=== PATIENT | male | born 1990 | race Caucasian/White ===

== ENCOUNTER 2016-07-16 20:10 | Emergency (ER) | payer OTHER ==
[~2016-07-16] VITALS: Ht 170.2 cm; Wt 52.6 kg
[~2016-07-16 20:10] MED LIST: CIPROFLOXACIN500 M1 PO; FLEXERIL10 MG PO; METRONIDAZOLE500 MG PO; NAPROSYN500 MG PO; NO HOME MEDS; NOHOMEMEDS; PREDNISONE20 MG PO; ULTRAM50 MG PO
[2016-07-16 20:33] VITALS: BP 120/95
[2016-07-16 21:02] LABS: HEMATOCRIT 45.5 % (38.0-50.0); MCH 23.4 PG (29.0-34.0); MCHC 30.8 G/DL (30.0-36.0); PLATELET COUNT 584 K/uL (156-360); RBC DIS.WIDTH-SD 43.6 % (39-53); RED BLOOD COUNT 5.99 M/uL (4.00-5.50); WHITE BLOOD COUNT 13.4 K/uL (4.1-10.2)
[2016-07-16 21:19] LABS: CHLORIDE 98 mEq/L (99-109); POTASSIUM 3.9 mEq/L (3.7-5.4); SODIUM 136 mEq/L (136-147)
[2016-07-16 21:21] LABS: GLUCOSE 121 mg/dL (70-99)
[2016-07-16 21:22] LABS: ANION GAP 14 MEQ/L (2-14)
[2016-07-16 21:23] LABS: TOTAL BILIRUBIN 0.3 mg/dL (0.0-1.0)
[2016-07-16 21:25] LABS: ALKALINE PHOSPHATASE 123 IU/L (3-129); GFR ESTIMATE (CALCULATED) > 59 mL/min/
[2016-07-16 21:26] LABS: UREA NITROGEN (BUN) 10 mg/dL (9-23)
== END 2016-07-16 23:54 | disposition left against medical advice (07) ==
LOC: EME 20:10
DX: R11.0 Nausea (principal); Z53.21 Procedure and treatment not carried out due to patient leaving prior to being seen by health care provider
CPT/HCPCS: 80053; 81003; 85027

== ENCOUNTER 2016-07-26 18:48 | Inpatient (IN) | payer OTHER ==
[~2016-07-26] VITALS: Ht 170.2 cm; Wt 51.0 kg
[2016-07-26 19:43] LABS: CHLORIDE 102 mEq/L (99-109); POTASSIUM 3.9 mEq/L (3.7-5.4); SODIUM 137 mEq/L (136-147)
[2016-07-26 19:45] LABS: MCH 23.4 PG (29.0-34.0); MCHC 31.2 G/DL (30.0-36.0); MCV 74.9 FL (86-99); MEAN PLAT.VOLUME 9.4 uM^3 (9.0-12.4); PLATELET COUNT 603 K/uL (156-360); RBC DIS.WIDTH-CV 16.9 % (11.8-14.6); RBC DIS.WIDTH-SD 44.4 % (39-53); RED BLOOD COUNT 5.61 M/uL (4.00-5.50); WHITE BLOOD COUNT 12.6 K/uL (4.1-10.2)
[2016-07-26 19:46] LABS: GLUCOSE 94 mg/dL (70-99)
[2016-07-26 19:47] LABS: ANION GAP 11 MEQ/L (2-14); TOTAL BILIRUBIN 0.2 mg/dL (0.0-1.0)
[2016-07-26 19:49] LABS: ALKALINE PHOSPHATASE 120 IU/L (3-129); GFR ESTIMATE (CALCULATED) > 59 mL/min/
[2016-07-26 19:50] LABS: UREA NITROGEN (BUN) 11 mg/dL (9-23)
[2016-07-26 19:51] LABS: ADD MIUA? YES; BILIRUBIN NEGATIVE; BLOOD NEGATIVE; COLOR YELLOW ((YELLOW)); GLUCOSE (STRIP) NEGATIVE; KETONES 5; LEUKOCYTES NEGATIVE; NITRITE NEGATIVE; PROTEIN (STRIP) NEGATIVE; SPECIFIC GRAVITY 1.023 (1.000-1.030); UROBILINOGEN 0.2 MG/DL (0.2-1.0)
[2016-07-26 19:55] LABS: BACTERIA NONE SEEN /HPF; CALCIUM OXALATE CRYSTALS 2+ /HPF; EPITHELIAL CELLS NONE SEEN /HPF; GRANULAR CASTS 0-5 /LPF; HYALINE CASTS 0-5 /LPF; MUCUS TRACE /LPF; UCUL ADDED? NO; WHITE BLOOD CELLS 0-5 /HPF (0-5)
[2016-07-26 20:07] LABS: LIPASE 58 U/L (1.0-51.0)
[2016-07-26] MEDS ORDERED: TYLENOL EXTRA500 MG PO (22:29)
[2016-07-27 01:30] VITALS: BP 123/88
[2016-07-27 03:40] VITALS: BP 131/65
[2016-07-27 07:57] VITALS: BP 105/71
[2016-07-27 16:07] VITALS: BP 122/85
[2016-07-27 20:17] VITALS: BP 122/76
[2016-07-28 00:29] VITALS: BP 106/62
[2016-07-28 04:31] VITALS: BP 128/56
[2016-07-28 07:35] VITALS: BP 125/56
[2016-07-28 07:54] LABS: EOSINOPHIL (%) 1.3 % (0-5); EOSINOPHIL COUNT 0.1 K/uL (0-0.3); HEMATOCRIT 31.4 % (38.0-50.0); IMMATURE GRANULOCYTE (%) 0.3 % (0.0-0.7); INSTRUMENT ABS NEUTROPHIL CT 4.1 K/uL; LYMPHOCYTE COUNT 2.7 K/uL (1.0-2.8); MCH 23.3 PG (29.0-34.0); MCHC 31.2 G/DL (30.0-36.0); MCV 74.8 FL (86-99); MONOCYTE (%) 10.3 % (3-12); MONOCYTE COUNT 0.8 K/uL (0-0.8); NEUTROPHIL (%) 52.5 % (45-76); NEUTROPHIL COUNT 4.1 K/uL (1.8-6.4); RBC DIS.WIDTH-CV 17.1 % (11.8-14.6); RBC DIS.WIDTH-SD 45.6 % (39-53)
[2016-07-28 07:55] LABS: WHITE BLOOD COUNT 7.7 K/uL (4.1-10.2)
[2016-07-28 07:56] LABS: GFR ESTIMATE (CALCULATED) > 59 mL/min/; GLUCOSE 96 mg/dL (70-99); UREA NITROGEN (BUN) 4 mg/dL (9-23)
[2016-07-28 07:57] LABS: ALKALINE PHOSPHATASE 69 IU/L (3-129); ANION GAP 4 MEQ/L (2-14); CHLORIDE 106 MEQ/L (99-109); MAGNESIUM 1.6 mg/dl (1.3-2.7); POTASSIUM 3.7 MEQ/L (3.7-5.4); SAMPLE HEMOLYSIS CHECK 0; SAMPLE ICTERIC CHECK 0; SAMPLE LIPEMIA CHECK 0; SODIUM 139 MEQ/L (136-147); TOTAL BILIRUBIN 0.2 MG/DL (0.0-1.0)
[2016-07-28 08:24] LABS: MEAN PLAT.VOLUME 9.6 uM^3 (9.0-12.4); PLAT.SUFFICIENCY INCREASED; PLATELET COUNT 477 K/uL (156-360)
[2016-07-28 12:10] VITALS: BP 113/72
[2016-07-28 15:35] VITALS: BP 104/64
[2016-07-29 02:19] VITALS: BP 100/52
[2016-07-29 07:32] LABS: ALKALINE PHOSPHATASE 71 IU/L (3-129); ANION GAP 7 MEQ/L (2-14); CHLORIDE 103 MEQ/L (99-109); GFR ESTIMATE (CALCULATED) > 59 mL/min/; GLUCOSE 98 mg/dL (70-99); POTASSIUM 4.6 MEQ/L (3.7-5.4); SAMPLE HEMOLYSIS CHECK 0; SAMPLE ICTERIC CHECK 0; SAMPLE LIPEMIA CHECK 0; SODIUM 139 MEQ/L (136-147); TOTAL BILIRUBIN 0.2 MG/DL (0.0-1.0); UREA NITROGEN (BUN) 4 mg/dL (9-23)
[2016-07-29 07:33] LABS: EOSINOPHIL (%) 0.1 % (0-5); HEMATOCRIT 32.3 % (38.0-50.0); IMMATURE GRANULOCYTE (%) 0.4 % (0.0-0.7); INSTRUMENT ABS NEUTROPHIL CT 5.2 K/uL; LYMPHOCYTE COUNT 1.7 K/uL (1.0-2.8); MCH 23.2 PG (29.0-34.0); MCV 74.9 FL (86-99); MEAN PLAT.VOLUME 10.1 uM^3 (9.0-12.4); MONOCYTE (%) 8.7 % (3-12); MONOCYTE COUNT 0.7 K/uL (0-0.8); NEUTROPHIL (%) 68.1 % (45-76); NEUTROPHIL COUNT 5.2 K/uL (1.8-6.4); PLATELET COUNT 510 K/uL (156-360); RBC DIS.WIDTH-SD 45.6 % (39-53); RED BLOOD COUNT 4.31 M/uL (4.00-5.50); WHITE BLOOD COUNT 7.6 K/uL (4.1-10.2)
[2016-07-29 08:46] VITALS: BP 126/75
[2016-07-29 12:39] VITALS: BP 120/77
[2016-07-29 16:18] VITALS: BP 123/68
[2016-07-30 00:18] VITALS: BP 118/58
[2016-07-30 07:42] LABS: EOSINOPHIL (%) 0.9 % (0-5); EOSINOPHIL COUNT 0.1 K/uL (0-0.3); HEMATOCRIT 32.5 % (38.0-50.0); IMM.RETIC FRACTION 18.4 % (3-19); IMMATURE GRANULOCYTE (%) 0.6 % (0.0-0.7); IMMATURE GRANULOCYTE COUNT 0.1 K/uL; INSTRUMENT ABS NEUTROPHIL CT 4.1 K/uL; LYMPHOCYTE COUNT 3.8 K/uL (1.0-2.8); MCH 23.4 PG (29.0-34.0); MCHC 31.1 G/DL (30.0-36.0); MCV 75.4 FL (86-99); MEAN PLAT.VOLUME 9.6 uM^3 (9.0-12.4); NEUTROPHIL (%) 45.2 % (45-76); NEUTROPHIL COUNT 4.1 K/uL (1.8-6.4); PLATELET COUNT 479 K/uL (156-360); RBC DIS.WIDTH-CV 17.2 % (11.8-14.6); RED BLOOD COUNT 4.31 M/uL (4.00-5.50); RETIC HGB EQUIVALENT 30.1 (28-36); RETICULOCYTE COUNT 1.4 % (0.5-1.8); WHITE BLOOD COUNT 9.1 K/uL (4.1-10.2)
[2016-07-30 08:25] LABS: ALKALINE PHOSPHATASE 62 IU/L (3-129); ANION GAP 8 MEQ/L (2-14); CHLORIDE 105 MEQ/L (99-109); FERRITIN 71 NG/ML (22-322); GFR ESTIMATE (CALCULATED) > 59 mL/min/; GLUCOSE 79 mg/dL (70-99); IRON 67 MCG/DL (35-150); SAMPLE HEMOLYSIS CHECK 0; SAMPLE ICTERIC CHECK 0; SAMPLE LIPEMIA CHECK 0; SODIUM 142 MEQ/L (136-147); TOTAL BILIRUBIN 0.2 MG/DL (0.0-1.0); UREA NITROGEN (BUN) 5 mg/dL (9-23)
[2016-07-30 08:27] LABS: POTASSIUM 3.6 MEQ/L (3.7-5.4)
[2016-07-30 08:54] VITALS: BP 110/66
[2016-07-30 10:54] LABS: MAGNESIUM 1.7 mg/dl (1.3-2.7)
[2016-07-30] MEDS ORDERED: TRAMADOL HCL50 MG PO (12:23)
[2016-07-30] MEDS ORDERED: FOLIC ACID1 MG PO (12:23)
[2016-07-30] MEDS ORDERED: PREDNISONE10 MG PO (12:23)
[2016-07-30] MEDS ORDERED: ASACOL HD800 MG PO (12:23)
[2016-07-30] MEDS ORDERED: NICOTINE PATCH1 EAC2 TD (12:23)
[2016-07-30] MEDS ORDERED: METRONIDAZOLE500 MG PO (12:27)
[2016-07-30] MEDS ORDERED: CIPRO500 MG PO (12:27)
[2016-07-30 12:49] VITALS: BP 124/69
== END 2016-07-30 13:42 | disposition home or self-care (01) | DRG 386 ==
LOC: EME 18:48 → 2EAST 07-27 00:21 → EDOF 07-27 00:21 → 2EAST 07-27 01:13
PROVIDERS: Hospitalist; Internal Medicine
DX: K50.012 Crohn's disease of small intestine with intestinal obstruction (principal); A09 Infectious gastroenteritis and colitis, unspecified; R64 Cachexia; Z68.1 Body mass index [BMI] 19.9 or less, adult; D50.9 Iron deficiency anemia, unspecified; E86.0 Dehydration; D47.3 Essential (hemorrhagic) thrombocythemia; R63.6 Underweight; F90.9 Attention-deficit hyperactivity disorder, unspecified type; F17.200 Nicotine dependence, unspecified, uncomplicated; Z91.19 Patient's noncompliance with other medical treatment and regimen
CPT/HCPCS: 74000; 74177; 80048; 80053; 81003; 82607; 82728; 82746; 83540; 83690; 83735; 84466; 85025; 85027; 85045; 87177; 87329; 87493; 99281; 99285; J0744; J1644; J2270; J2405; J2920; J2930; J7030; J7042; S0028; S0030

== ENCOUNTER 2016-09-14 18:21 | Inpatient (IN) | payer OTHER ==
[~2016-09-14] VITALS: Ht 170.2 cm; Wt 49.4 kg
[~2016-09-14 18:21] MED LIST changes: +ASACOL HD800 MG PO; +CIPRO500 MG PO; +FOLIC ACID1 MG PO; +NICOTINE PATCH1 EAC2 TD; +PREDNISONE10 MG PO; +TRAMADOL HCL50 MG PO; +TYLENOL EXTRA500 MG PO
[2016-09-14 19:46] LABS: HEMATOCRIT 48.4 % (38.0-50.0); MCH 23.8 PG (29.0-34.0); MCHC 31.6 G/DL (30.0-36.0); MCV 75.4 FL (86-99); PLATELET COUNT 409 K/uL (156-360); RBC DIS.WIDTH-CV 18.9 % (11.8-14.6); RBC DIS.WIDTH-SD 48.5 % (39-53); RED BLOOD COUNT 6.42 M/uL (4.00-5.50); WHITE BLOOD COUNT 10.9 K/uL (4.1-10.2)
[2016-09-14 19:55] LABS: CHLORIDE 94 mEq/L (99-109); POTASSIUM 4.2 mEq/L (3.7-5.4); SODIUM 135 mEq/L (136-147)
[2016-09-14 19:57] LABS: GLUCOSE 109 mg/dL (70-99)
[2016-09-14 19:59] LABS: ANION GAP 14 MEQ/L (2-14); TOTAL BILIRUBIN 0.5 mg/dL (0.0-1.0)
[2016-09-14 20:01] LABS: ALKALINE PHOSPHATASE 131 IU/L (3-129); GFR ESTIMATE (CALCULATED) > 59 mL/min/
[2016-09-14 20:02] LABS: UREA NITROGEN (BUN) 14 mg/dL (9-23)
[2016-09-14 20:04] LABS: LIPASE 37 U/L (1.0-51.0)
[2016-09-14 20:37] LABS: C-REACTIVE PROTEIN 2.1 MG/L (0-10); SAMPLE HEMOLYSIS CHECK 0; SAMPLE ICTERIC CHECK 0; SAMPLE LIPEMIA CHECK 0
[2016-09-14 20:52] LABS: ERTH.SED.RATE 25 MM/HR (0-15)
[2016-09-14 21:56] LABS: ADD MIUA? YES; BILIRUBIN NEGATIVE; BLOOD NEGATIVE; COLOR YELLOW ((YELLOW)); GLUCOSE (STRIP) NEGATIVE; KETONES NEGATIVE; LEUKOCYTES TRACE; NITRITE NEGATIVE; PROTEIN (STRIP) NEGATIVE; SPECIFIC GRAVITY 1.028 (1.000-1.030); UROBILINOGEN 0.2 MG/DL (0.2-1.0)
[2016-09-14 22:32] LABS: BACTERIA NONE SEEN /HPF; EPITHELIAL CELLS NONE SEEN /HPF; GRANULAR CASTS 25-30 /LPF; MUCUS TRACE /LPF; RED BLOOD CELLS 0-5 /HPF (0-5); UCUL ADDED? NO; WHITE BLOOD CELLS 0-5 /HPF (0-5)
[2016-09-14] MEDS ORDERED: PREDNISONE10 MG PO (22:33)
[2016-09-15 02:22] VITALS: BP 115/74
[2016-09-15 06:45] LABS: EOSINOPHIL (%) 0 % (0-5); HEMATOCRIT 35.8 % (38.0-50.0); IMMATURE GRANULOCYTE (%) 0.5 % (0.0-0.7); INSTRUMENT ABS NEUTROPHIL CT 5.1 K/uL; LYMPHOCYTE COUNT 0.8 K/uL (1.0-2.8); MCH 23.9 PG (29.0-34.0); MCHC 31.6 G/DL (30.0-36.0); MCV 75.8 FL (86-99); MEAN PLAT.VOLUME 10.7 uM^3 (9.0-12.4); MONOCYTE (%) 1.5 % (3-12); MONOCYTE COUNT 0.1 K/uL (0-0.8); NEUTROPHIL (%) 84.1 % (45-76); NEUTROPHIL COUNT 5.1 K/uL (1.8-6.4); PLATELET COUNT 340 K/uL (156-360); RBC DIS.WIDTH-CV 17.7 % (11.8-14.6); RBC DIS.WIDTH-SD 49.1 % (39-53)
[2016-09-15 06:48] LABS: RED BLOOD COUNT 4.72 M/uL (4.00-5.50); WHITE BLOOD COUNT 6.1 K/uL (4.1-10.2)
[2016-09-15 07:00] VITALS: BP 85/50
[2016-09-15 07:38] LABS: ANION GAP 7 MEQ/L (2-14); CHLORIDE 100 MEQ/L (99-109); GFR ESTIMATE (CALCULATED) > 59 mL/min/; GLUCOSE 126 mg/dL (70-99); POTASSIUM 4.7 MEQ/L (3.7-5.4); SAMPLE HEMOLYSIS CHECK 0; SAMPLE ICTERIC CHECK 0; SAMPLE LIPEMIA CHECK 0; SODIUM 134 MEQ/L (136-147); UREA NITROGEN (BUN) 14 mg/dL (9-23)
[2016-09-15 08:20] VITALS: BP 105/59
[2016-09-15 11:29] VITALS: BP 94/53
[2016-09-15 12:34] LABS: HEMATOCRIT 32.7 % (38.0-50.0); MCV 77.3 FL (86-99)
[2016-09-15 16:00] VITALS: BP 105/57
[2016-09-15 23:40] VITALS: BP 112/65
[2016-09-16 08:00] VITALS: BP 112/64
[2016-09-16 09:03] LABS: EOSINOPHIL (%) 0.2 % (0-5); HEMATOCRIT 33.4 % (38.0-50.0); IMMATURE GRANULOCYTE (%) 0.5 % (0.0-0.7); INSTRUMENT ABS NEUTROPHIL CT 6.3 K/uL; LYMPHOCYTE COUNT 1.7 K/uL (1.0-2.8); MCH 24.2 PG (29.0-34.0); MCHC 31.4 G/DL (30.0-36.0); MCV 77.1 FL (86-99); MEAN PLAT.VOLUME 10.8 uM^3 (9.0-12.4); MONOCYTE (%) 8.1 % (3-12); MONOCYTE COUNT 0.7 K/uL (0-0.8); NEUTROPHIL (%) 71.5 % (45-76); NEUTROPHIL COUNT 6.3 K/uL (1.8-6.4); PLATELET COUNT 323 K/uL (156-360); RBC DIS.WIDTH-CV 18.1 % (11.8-14.6); RBC DIS.WIDTH-SD 50.7 % (39-53); RED BLOOD COUNT 4.33 M/uL (4.00-5.50)
[2016-09-16 09:07] LABS: WHITE BLOOD COUNT 8.8 K/uL (4.1-10.2)
[2016-09-16 11:06] LABS: ANION GAP 4 MEQ/L (2-14); CHLORIDE 107 MEQ/L (99-109); GFR ESTIMATE (CALCULATED) > 59 mL/min/; POTASSIUM 4.2 MEQ/L (3.7-5.4); SAMPLE HEMOLYSIS CHECK 0; SAMPLE ICTERIC CHECK 0; SAMPLE LIPEMIA CHECK 0; SODIUM 136 MEQ/L (136-147); UREA NITROGEN (BUN) 12 mg/dL (9-23)
[2016-09-16 11:08] LABS: GLUCOSE 81 mg/dL (70-99)
[2016-09-17 00:19] VITALS: BP 100/56
[2016-09-17 07:08] LABS: EOSINOPHIL (%) 0 % (0-5); HEMATOCRIT 38.7 % (38.0-50.0); IMMATURE GRANULOCYTE (%) 0.5 % (0.0-0.7); INSTRUMENT ABS NEUTROPHIL CT 4.3 K/uL; LYMPHOCYTE COUNT 1.2 K/uL (1.0-2.8); MCH 24.6 PG (29.0-34.0); MCHC 31.5 G/DL (30.0-36.0); MONOCYTE (%) 7.9 % (3-12); MONOCYTE COUNT 0.5 K/uL (0-0.8); NEUTROPHIL (%) 71.8 % (45-76); NEUTROPHIL COUNT 4.3 K/uL (1.8-6.4); PLATELET COUNT 388 K/uL (156-360); RBC DIS.WIDTH-CV 19.2 % (11.8-14.6); RBC DIS.WIDTH-SD 52.8 % (39-53); RED BLOOD COUNT 4.96 M/uL (4.00-5.50)
[2016-09-17 07:15] VITALS: BP 106/64
[2016-09-17 07:18] LABS: WHITE BLOOD COUNT 6.1 K/uL (4.1-10.2)
[2016-09-17 07:30] LABS: ANION GAP 7 MEQ/L (2-14); CHLORIDE 106 MEQ/L (99-109); GFR ESTIMATE (CALCULATED) > 59 mL/min/; GLUCOSE 80 mg/dL (70-99); POTASSIUM 4.8 MEQ/L (3.7-5.4); SAMPLE HEMOLYSIS CHECK 0; SAMPLE ICTERIC CHECK 0; SAMPLE LIPEMIA CHECK 0; SODIUM 140 MEQ/L (136-147); UREA NITROGEN (BUN) 9 mg/dL (9-23)
[2016-09-17 16:00] VITALS: BP 112/56
[2016-09-17 23:26] VITALS: BP 127/69
[2016-09-18 08:50] VITALS: BP 114/72
[2016-09-18 17:05] VITALS: BP 111/70
[2016-09-19 00:18] VITALS: BP 129/76
[2016-09-19 07:24] VITALS: BP 109/68
[2016-09-19] MEDS ORDERED: DELTASONE20 M1 PO (12:38)
[2016-09-19] MEDS ORDERED: METRONIDAZOLE500 MG PO (12:38)
[2016-09-19] MEDS ORDERED: OMEPRAZOLE20 MG PO (12:38)
[2016-09-19] MEDS ORDERED: CIPRO500 MG PO (12:38)
== END 2016-09-19 13:35 | disposition home or self-care (01) | DRG 386 ==
LOC: EME 18:21 → EDOF 09-15 01:10 → 2EAST 09-15 01:10
PROVIDERS: Hospitalist; Internal Medicine; Student in an Organized Health Care Education/Training Program
DX: K50.012 Crohn's disease of small intestine with intestinal obstruction (principal); R65.10 Systemic inflammatory response syndrome (SIRS) of non-infectious origin without acute organ dysfunction; I95.9 Hypotension, unspecified; Z87.891 Personal history of nicotine dependence; R00.0 Tachycardia, unspecified; Z91.14 Patient's other noncompliance with medication regimen
CPT/HCPCS: 71010; 74000; 74020; 74177; 80048; 80053; 81003; 83605; 83690; 85014; 85018; 85025; 85027; 85651; 86140; 87040; 87177; 87493; 99281; 99285; J0744; J1170; J1644; J2405; J2920; J2930; J3010; J7030; S0028; S0030

== ENCOUNTER 2017-05-18 19:17 | Inpatient (IN) | payer OTHER ==
[~2017-05-18] VITALS: Ht 170.2 cm; Wt 55.9 kg
[~2017-05-18 19:17] MED LIST changes: +DELTASONE20 M1 PO; +OMEPRAZOLE20 MG PO
[2017-05-18 19:37] LABS: HEMATOCRIT 50.7 % (38.0-50.0); HEMOGLOBIN 17.1 G/DL (12.5-16.6); MCHC 33.7 G/DL (30.0-36.0); MCV 83.1 FL (86-99); PLATELET COUNT 369 K/uL (156-360); RBC DIS.WIDTH-CV 13.3 % (11.8-14.6); RBC DIS.WIDTH-SD 40.7 % (39-53); WHITE BLOOD COUNT 12.7 K/uL (4.1-10.2)
[2017-05-18 19:58] LABS: ALBUMIN 4.1 g/dL (3.2-4.8); CHLORIDE 99 mEq/L (99-109); POTASSIUM 4.7 mEq/L (3.7-5.4)
[2017-05-18 19:59] LABS: SODIUM 131 mEq/L (136-147)
[2017-05-18 20:01] LABS: GLUCOSE 109 mg/dL (70-99); TOTAL PROTEIN 7.2 g/dL (6.4-8.3)
[2017-05-18 20:03] LABS: TOTAL BILIRUBIN 0.3 mg/dL (0.0-1.0)
[2017-05-18 20:04] LABS: ALKALINE PHOSPHATASE 165 IU/L (3-129); GFR ESTIMATE (CALCULATED) > 59 mL/min/ (58.99-99999)
[2017-05-18 20:06] LABS: AST (GOT) 22 IU/L (2-34); UREA NITROGEN (BUN) 19 mg/dL (9-23)
[2017-05-18 20:07] LABS: ALT (GPT) 24 IU/L (3-49)
[2017-05-18 22:42] LABS: APPEARANCE CLEAR ((CLEAR)); BILIRUBIN NEGATIVE; BLOOD NEGATIVE; COLOR YELLOW ((YELLOW)); GLUCOSE (STRIP) NEGATIVE; KETONES 20; LEUKOCYTES NEGATIVE; NITRITE NEGATIVE; PROTEIN (STRIP) NEGATIVE; UCUL ADDED? NO; UROBILINOGEN 0.2 MG/DL (0.2-1.0)
[2017-05-18 22:52] LABS: SPECIFIC GRAVITY 1.083 (1.000-1.030)
[2017-05-19 04:19] LABS: HEMATOCRIT 42.3 % (38.0-50.0); HEMOGLOBIN 14.3 G/DL (12.5-16.6); MCHC 33.8 G/DL (30.0-36.0); MCV 82.9 FL (86-99); PLATELET COUNT 309 K/uL (156-360); RBC DIS.WIDTH-CV 13.3 % (11.8-14.6); RBC DIS.WIDTH-SD 40.4 % (39-53); WHITE BLOOD COUNT 9.1 K/uL (4.1-10.2)
[2017-05-19 07:04] VITALS: BP 113/62
[2017-05-19 07:55] VITALS: BP 102/55
[2017-05-19 12:32] LABS: CHLORIDE 103 MEQ/L (99-109); CREATININE 0.8 MG/DL (0.6-1.3); GFR ESTIMATE (CALCULATED) > 59 mL/min/ (58.99-99999); GLUCOSE 111 mg/dL (70-99); POTASSIUM 4.7 MEQ/L (3.7-5.4); SODIUM 132 MEQ/L (136-147); UREA NITROGEN (BUN) 18 mg/dL (9-23)
[2017-05-19 15:14] VITALS: BP 114/64
[2017-05-19 23:34] VITALS: BP 106/56
[2017-05-20 05:52] LABS: BASOPHIL (%) 0.1 % (0-1); EOSINOPHIL (%) 0 % (0-5); HEMATOCRIT 39.8 % (38.0-50.0); HEMOGLOBIN 12.9 G/DL (12.5-16.6); IMMATURE GRANULOCYTE (%) 0.8 % (0.0-0.7); LYMPHOCYTE (%) 10.6 % (15-42); LYMPHOCYTE COUNT 0.9 K/uL (1.0-2.8); MCH 27.3 PG (29.0-34.0); MCHC 32.4 G/DL (30.0-36.0); MCV 84.3 FL (86-99); MONOCYTE (%) 3.3 % (3-12); MONOCYTE COUNT 0.3 K/uL (0-0.8); NEUTROPHIL (%) 85.2 % (45-76); NEUTROPHIL COUNT 7.1 K/uL (1.8-6.4); PLATELET COUNT 325 K/uL (156-360); RBC DIS.WIDTH-CV 13.3 % (11.8-14.6); RBC DIS.WIDTH-SD 41.5 % (39-53); RED BLOOD COUNT 4.72 M/uL (4.00-5.50); WHITE BLOOD COUNT 8.3 K/uL (4.1-10.2)
[2017-05-20 06:11] LABS: ALBUMIN 3.1 G/DL (3.2-4.8); ALKALINE PHOSPHATASE 92 IU/L (3-129); ALT (GPT) 13 IU/L (3-49); AST (GOT) 13 IU/L (2-34); C-REACTIVE PROTEIN 1.8 MG/L (0-10); CHLORIDE 104 MEQ/L (99-109); CHLORIDE 105 MEQ/L (99-109); CREATININE 0.8 MG/DL (0.6-1.3); GFR ESTIMATE (CALCULATED) > 59 mL/min/ (58.99-99999); GLUCOSE 94 mg/dL (70-99); GLUCOSE 96 mg/dL (70-99); POTASSIUM 4.4 MEQ/L (3.7-5.4); POTASSIUM 4.5 MEQ/L (3.7-5.4); SODIUM 133 MEQ/L (136-147); SODIUM 135 MEQ/L (136-147); TOTAL BILIRUBIN 0.3 MG/DL (0.0-1.0); TOTAL PROTEIN 5.2 G/DL (6.4-8.3); UREA NITROGEN (BUN) 15 mg/dL (9-23)
[2017-05-20 07:58] LABS: ERTH.SED.RATE 9 MM/HR (0-15)
[2017-05-20 11:41] VITALS: BP 116/78
[2017-05-20 15:57] VITALS: BP 105/61
[2017-05-20 23:29] VITALS: BP 107/63
[2017-05-21 05:22] LABS: BASOPHIL (%) 0.1 % (0-1); EOSINOPHIL (%) 0 % (0-5); HEMATOCRIT 40.9 % (38.0-50.0); HEMOGLOBIN 13.6 G/DL (12.5-16.6); IMMATURE GRANULOCYTE (%) 0.8 % (0.0-0.7); LYMPHOCYTE (%) 6.7 % (15-42); LYMPHOCYTE COUNT 0.7 K/uL (1.0-2.8); MCH 27.7 PG (29.0-34.0); MCHC 33.3 G/DL (30.0-36.0); MCV 83.3 FL (86-99); MONOCYTE (%) 4.6 % (3-12); MONOCYTE COUNT 0.5 K/uL (0-0.8); NEUTROPHIL (%) 87.8 % (45-76); NEUTROPHIL COUNT 8.5 K/uL (1.8-6.4); PLATELET COUNT 305 K/uL (156-360); RBC DIS.WIDTH-CV 13.6 % (11.8-14.6); RBC DIS.WIDTH-SD 41.1 % (39-53); RED BLOOD COUNT 4.91 M/uL (4.00-5.50); WHITE BLOOD COUNT 9.7 K/uL (4.1-10.2)
[2017-05-21 05:51] LABS: CHLORIDE 103 MEQ/L (99-109); CREATININE 0.7 MG/DL (0.6-1.3); GFR ESTIMATE (CALCULATED) > 59 mL/min/ (58.99-99999); GLUCOSE 86 mg/dL (70-99); POTASSIUM 4.5 MEQ/L (3.7-5.4); SODIUM 136 MEQ/L (136-147); UREA NITROGEN (BUN) 13 mg/dL (9-23)
[2017-05-21 07:17] LABS: APPEARANCE CLEAR ((CLEAR)); BILIRUBIN NEGATIVE; BLOOD NEGATIVE; COLOR YELLOW ((YELLOW)); GLUCOSE (STRIP) NEGATIVE; KETONES 20; LEUKOCYTES NEGATIVE; NITRITE NEGATIVE; PROTEIN (STRIP) NEGATIVE; SPECIFIC GRAVITY 1.011 (1.000-1.030); UROBILINOGEN 0.2 MG/DL (0.2-1.0)
[2017-05-21 07:56] VITALS: BP 115/63
[2017-05-21 16:12] VITALS: BP 113/62
[2017-05-21 23:48] VITALS: BP 112/56
[2017-05-22 06:39] LABS: BASOPHIL (%) 0.1 % (0-1); EOSINOPHIL (%) 0 % (0-5); HEMATOCRIT 42.8 % (38.0-50.0); HEMOGLOBIN 13.9 G/DL (12.5-16.6); LYMPHOCYTE (%) 6.8 % (15-42); LYMPHOCYTE COUNT 0.8 K/uL (1.0-2.8); MCH 27.3 PG (29.0-34.0); MCHC 32.5 G/DL (30.0-36.0); MCV 83.9 FL (86-99); MONOCYTE (%) 6.8 % (3-12); MONOCYTE COUNT 0.8 K/uL (0-0.8); NEUTROPHIL (%) 85.3 % (45-76); NEUTROPHIL COUNT 10.6 K/uL (1.8-6.4); PLATELET COUNT 344 K/uL (156-360); RBC DIS.WIDTH-CV 13.6 % (11.8-14.6); RBC DIS.WIDTH-SD 42.1 % (39-53); WHITE BLOOD COUNT 12.4 K/uL (4.1-10.2)
[2017-05-22 06:54] LABS: CHLORIDE 104 MEQ/L (99-109); CREATININE 0.8 MG/DL (0.6-1.3); GFR ESTIMATE (CALCULATED) > 59 mL/min/ (58.99-99999); GLUCOSE 86 mg/dL (70-99); POTASSIUM 4.5 MEQ/L (3.7-5.4); SODIUM 140 MEQ/L (136-147); UREA NITROGEN (BUN) 15 mg/dL (9-23)
[2017-05-22 08:25] VITALS: BP 116/62
[2017-05-22 16:00] VITALS: BP 120/68
[2017-05-22 23:42] VITALS: BP 116/77
[2017-05-23 02:00] LABS: C DIFF TOXIN NEGATIVE (NEGATIVE)
[2017-05-23 05:48] LABS: BASOPHIL (%) 0.1 % (0-1); EOSINOPHIL (%) 0 % (0-5); HEMATOCRIT 46.1 % (38.0-50.0); IMMATURE GRANULOCYTE (%) 1.3 % (0.0-0.7); LYMPHOCYTE (%) 5.7 % (15-42); LYMPHOCYTE COUNT 0.8 K/uL (1.0-2.8); MCH 27.1 PG (29.0-34.0); MCHC 32.5 G/DL (30.0-36.0); MCV 83.4 FL (86-99); MONOCYTE COUNT 0.7 K/uL (0-0.8); NEUTROPHIL (%) 87.9 % (45-76); NEUTROPHIL COUNT 12.3 K/uL (1.8-6.4); PLATELET COUNT 338 K/uL (156-360); RBC DIS.WIDTH-CV 13.5 % (11.8-14.6); RBC DIS.WIDTH-SD 41.3 % (39-53); RED BLOOD COUNT 5.53 M/uL (4.00-5.50); WHITE BLOOD COUNT 13.9 K/uL (4.1-10.2)
[2017-05-23 06:33] LABS: ALBUMIN 3.6 G/DL (3.2-4.8); ALKALINE PHOSPHATASE 86 IU/L (3-129); ALT (GPT) 24 IU/L (3-49); AST (GOT) 33 IU/L (2-34); CHLORIDE 99 MEQ/L (99-109); CREATININE 0.8 MG/DL (0.6-1.3); DIRECT BILIRUBIN 0.1 mg/dL (0.0-0.3); GFR ESTIMATE (CALCULATED) > 59 mL/min/ (58.99-99999); GLUCOSE 98 mg/dL (70-99); MAGNESIUM 2.2 mg/dl (1.3-2.7); PHOSPHORUS 2.8 mg/dL (2.5-4.9); POTASSIUM 4.1 MEQ/L (3.7-5.4); PREALBUMIN 17.5 mg/dL (10-40); SODIUM 135 MEQ/L (136-147); TOTAL BILIRUBIN 0.5 MG/DL (0.0-1.0); TOTAL PROTEIN 5.8 G/DL (6.4-8.3); TRIGLYCERIDES 113 MG/DL (Normal: <150); UREA NITROGEN (BUN) 13 mg/dL (9-23)
[2017-05-23 07:38] VITALS: BP 138/72
[2017-05-23 08:01] VITALS: BP 132/79
[2017-05-23 16:00] VITALS: BP 122/71
[2017-05-23 23:16] VITALS: BP 109/66
[2017-05-24 05:41] LABS: BASOPHIL (%) 0 % (0-1); EOSINOPHIL (%) 0 % (0-5); HEMATOCRIT 43.5 % (38.0-50.0); HEMOGLOBIN 14.3 G/DL (12.5-16.6); IMMATURE GRANULOCYTE (%) 1.5 % (0.0-0.7); LYMPHOCYTE (%) 8.7 % (15-42); LYMPHOCYTE COUNT 0.6 K/uL (1.0-2.8); MCH 27.4 PG (29.0-34.0); MCHC 32.9 G/DL (30.0-36.0); MCV 83.3 FL (86-99); MONOCYTE (%) 6.1 % (3-12); MONOCYTE COUNT 0.4 K/uL (0-0.8); NEUTROPHIL (%) 83.7 % (45-76); NEUTROPHIL COUNT 5.5 K/uL (1.8-6.4); PLATELET COUNT 288 K/uL (156-360); RBC DIS.WIDTH-CV 13.3 % (11.8-14.6); RBC DIS.WIDTH-SD 40.7 % (39-53); RED BLOOD COUNT 5.22 M/uL (4.00-5.50); WHITE BLOOD COUNT 6.6 K/uL (4.1-10.2)
[2017-05-24 06:06] LABS: CHLORIDE 103 MEQ/L (99-109); CREATININE 0.7 MG/DL (0.6-1.3); GFR ESTIMATE (CALCULATED) > 59 mL/min/ (58.99-99999); GLUCOSE 150 mg/dL (70-99); MAGNESIUM 2.1 mg/dl (1.3-2.7); PHOSPHORUS 3.4 mg/dL (2.5-4.9); POTASSIUM 4.5 MEQ/L (3.7-5.4); SODIUM 137 MEQ/L (136-147); UREA NITROGEN (BUN) 12 mg/dL (9-23)
[2017-05-24 07:56] VITALS: BP 118/65
[2017-05-24 16:44] VITALS: BP 118/74
[2017-05-24 23:22] VITALS: BP 115/61
[2017-05-25 05:55] LABS: BASOPHIL (%) 0.1 % (0-1); EOSINOPHIL COUNT 0.1 K/uL (0-0.3); HEMATOCRIT 44.7 % (38.0-50.0); HEMOGLOBIN 14.9 G/DL (12.5-16.6); IMMATURE GRANULOCYTE (%) 0.4 % (0.0-0.7); LYMPHOCYTE (%) 47.8 % (15-42); LYMPHOCYTE COUNT 4.6 K/uL (1.0-2.8); MCHC 33.3 G/DL (30.0-36.0); MONOCYTE (%) 11.2 % (3-12); MONOCYTE COUNT 1.1 K/uL (0-0.8); NEUTROPHIL (%) 39.5 % (45-76); NEUTROPHIL COUNT 3.8 K/uL (1.8-6.4); PLATELET COUNT 274 K/uL (156-360); RBC DIS.WIDTH-CV 13.2 % (11.8-14.6); RBC DIS.WIDTH-SD 40.8 % (39-53); RED BLOOD COUNT 5.32 M/uL (4.00-5.50); WHITE BLOOD COUNT 9.5 K/uL (4.1-10.2)
[2017-05-25 06:27] LABS: ALBUMIN 3.3 G/DL (3.2-4.8); ALKALINE PHOSPHATASE 73 IU/L (3-129); CHLORIDE 102 MEQ/L (99-109); CREATININE 0.7 MG/DL (0.6-1.3); DIRECT BILIRUBIN 0.1 mg/dL (0.0-0.3); GFR ESTIMATE (CALCULATED) > 59 mL/min/ (58.99-99999); PHOSPHORUS 3.3 mg/dL (2.5-4.9); POTASSIUM 4.3 MEQ/L (3.7-5.4); PREALBUMIN 26.1 mg/dL (10-40); SODIUM 137 MEQ/L (136-147); TOTAL BILIRUBIN 0.4 MG/DL (0.0-1.0); TOTAL PROTEIN 5.3 G/DL (6.4-8.3); TRIGLYCERIDES 205 MG/DL (Normal: <150); UREA NITROGEN (BUN) 11 mg/dL (9-23)
[2017-05-25 06:29] LABS: ALT (GPT) 50 IU/L (3-49); AST (GOT) 15 IU/L (2-34); GLUCOSE 97 mg/dL (70-99); MAGNESIUM 1.7 mg/dl (1.3-2.7)
[2017-05-25 08:30] VITALS: BP 134/92
[2017-05-25 16:26] VITALS: BP 133/76
[2017-05-25 23:13] VITALS: BP 158/83
[2017-05-26 06:14] LABS: BASOPHIL (%) 0.1 % (0-1); EOSINOPHIL (%) 0.2 % (0-5); HEMATOCRIT 44.3 % (38.0-50.0); HEMOGLOBIN 14.6 G/DL (12.5-16.6); IMMATURE GRANULOCYTE (%) 0.5 % (0.0-0.7); LYMPHOCYTE (%) 21.8 % (15-42); LYMPHOCYTE COUNT 2.7 K/uL (1.0-2.8); MONOCYTE (%) 10.8 % (3-12); MONOCYTE COUNT 1.3 K/uL (0-0.8); NEUTROPHIL (%) 66.6 % (45-76); NEUTROPHIL COUNT 8.3 K/uL (1.8-6.4); PLATELET COUNT 277 K/uL (156-360); RBC DIS.WIDTH-CV 13.4 % (11.8-14.6); RBC DIS.WIDTH-SD 41.6 % (39-53); RED BLOOD COUNT 5.21 M/uL (4.00-5.50); WHITE BLOOD COUNT 12.4 K/uL (4.1-10.2)
[2017-05-26 06:32] LABS: CHLORIDE 101 MEQ/L (99-109); CREATININE 0.7 MG/DL (0.6-1.3); GFR ESTIMATE (CALCULATED) > 59 mL/min/ (58.99-99999); GLUCOSE 123 mg/dL (70-99); POTASSIUM 4.2 MEQ/L (3.7-5.4); SODIUM 135 MEQ/L (136-147); UREA NITROGEN (BUN) 14 mg/dL (9-23)
[2017-05-26 08:00] VITALS: BP 119/71
[2017-05-26 16:30] VITALS: BP 115/72
[2017-05-27 00:17] VITALS: BP 134/7
[2017-05-27 06:28] LABS: CHLORIDE 104 MEQ/L (99-109); CREATININE 0.6 MG/DL (0.6-1.3); GFR ESTIMATE (CALCULATED) > 59 mL/min/ (58.99-99999); GLUCOSE 84 mg/dL (70-99); PHOSPHORUS 3.5 mg/dL (2.5-4.9); SODIUM 138 MEQ/L (136-147); UREA NITROGEN (BUN) 13 mg/dL (9-23)
[2017-05-27 08:16] VITALS: BP 122/80
[2017-05-27 15:19] VITALS: BP 107/56
[2017-05-28 00:06] VITALS: BP 123/78
[2017-05-28 06:22] LABS: CHLORIDE 105 MEQ/L (99-109); CREATININE 0.6 MG/DL (0.6-1.3); GFR ESTIMATE (CALCULATED) > 59 mL/min/ (58.99-99999); GLUCOSE 91 mg/dL (70-99); MAGNESIUM 2.1 mg/dl (1.3-2.7); PHOSPHORUS 3.9 mg/dL (2.5-4.9); POTASSIUM 3.8 MEQ/L (3.7-5.4); SODIUM 138 MEQ/L (136-147); UREA NITROGEN (BUN) 14 mg/dL (9-23)
[2017-05-28 08:13] VITALS: BP 128/72
[2017-05-28 15:30] VITALS: BP 136/69
[2017-05-28 23:37] VITALS: BP 135/81
[2017-05-29 05:44] LABS: CHLORIDE 103 MEQ/L (99-109); CREATININE 0.6 MG/DL (0.6-1.3); GFR ESTIMATE (CALCULATED) > 59 mL/min/ (58.99-99999); GLUCOSE 83 mg/dL (70-99); PHOSPHORUS 3.8 mg/dL (2.5-4.9); POTASSIUM 3.8 MEQ/L (3.7-5.4); SODIUM 139 MEQ/L (136-147); UREA NITROGEN (BUN) 12 mg/dL (9-23)
[2017-05-29 07:56] VITALS: BP 117/75
[2017-05-29 15:42] VITALS: BP 122/86
[2017-05-29 23:44] VITALS: BP 102/55
[2017-05-30 07:40] LABS: CHLORIDE 104 MEQ/L (99-109); CREATININE 0.6 MG/DL (0.6-1.3); GFR ESTIMATE (CALCULATED) > 59 mL/min/ (58.99-99999); GLUCOSE 82 mg/dL (70-99); MAGNESIUM 1.9 mg/dl (1.3-2.7); SODIUM 137 MEQ/L (136-147); UREA NITROGEN (BUN) 17 mg/dL (9-23)
[2017-05-30 07:47] LABS: POTASSIUM 4.6 MEQ/L (3.7-5.4)
[2017-05-30 08:08] VITALS: BP 112/66
[2017-05-30 16:34] VITALS: BP 122/68
[2017-05-30 23:42] VITALS: BP 103/66
[2017-05-31 06:32] LABS: CHLORIDE 105 MEQ/L (99-109); CREATININE 0.5 MG/DL (0.6-1.3); GFR ESTIMATE (CALCULATED) > 59 mL/min/ (58.99-99999); GLUCOSE 101 mg/dL (70-99); MAGNESIUM 1.9 mg/dl (1.3-2.7); PHOSPHORUS 4.4 mg/dL (2.5-4.9); POTASSIUM 3.8 MEQ/L (3.7-5.4); SODIUM 139 MEQ/L (136-147); UREA NITROGEN (BUN) 16 mg/dL (9-23)
[2017-05-31 07:59] VITALS: BP 100/56
[2017-05-31 16:31] VITALS: BP 118/72
== END 2017-05-31 18:39 | disposition short-term general hospital (02) | DRG 386 ==
LOC: EME 19:17 → 3EAST 05-19 02:33 → EDOF 05-19 02:33 → ENRESERV 05-19 02:34 → 3EAST 05-19 05:35
PROVIDERS: Hospitalist; Internal Medicine; Internal Medicine Gastroenterology; Physician Assistant; Thoracic Surgery (Cardiothoracic Vascular Surgery)
PROC: 3E0436Z Introduction of Nutritional Substance into Central Vein, Percutaneous Approach (ICD-10-PCS; principal; 2017-05-23)
DX: K50.912 Crohn's disease, unspecified, with intestinal obstruction (principal); D72.829 Elevated white blood cell count, unspecified; D64.9 Anemia, unspecified; F90.9 Attention-deficit hyperactivity disorder, unspecified type; Z87.891 Personal history of nicotine dependence; Z91.19 Patient's noncompliance with other medical treatment and regimen
CPT/HCPCS: 71045; 74018; 74019; 74177; 76937; 80048; 80048 91; 80053; 81003; 82248; 83735; 84100; 84134; 84478; 84630 90; 85025; 85027; 85652; 86140; 87040; 87177; 87329; 87493; 99281; 99285; J0744; J1650; J2270; J2405; J2920; J2930; J3010; J7030; J7512; S0028; S0030